=== PATIENT | female | born 1970 | race Native Hawaiian/Other Pacific Islander ===

== ENCOUNTER 2020-09-24 19:51 | Emergency (ER) | payer OTHER ==
[~2020-09-24] VITALS: Ht 154.9 cm; Wt 92.1 kg
[2020-09-24 23:00] VITALS: BP 135/89; TEMP 98.2
== END 2020-09-24 23:00 | disposition home or self-care (01) ==
LOC: ED 19:51
DX: S43.492A Other sprain of left shoulder joint, initial encounter (principal); S73.192A Other sprain of left hip, initial encounter; V43.62XA Car passenger injured in collision with other type car in traffic accident, initial encounter; Y92.89 Other specified places as the place of occurrence of the external cause
CPT/HCPCS: 96372; 99283; J1885; J2360